=== PATIENT | female | born 1955 | race Caucasian/White ===

== ENCOUNTER → 2017-02-08 | Outpatient (CLI) | payer BC ==
[2017-02-08 14:41] LABS: LIPASE 217 IU/L (23-300)
--- NOTE | 2017-02-10 21:49 | DI ---
PA /LATERAL CHEST X-RAY, 02/08/2017 1:48 PM : Clinical History: Dyspnea Previous Exam: None at this facility. There is no acute soft tissue or bony abnormality. Heart size is normal. Lungs are clear. There is a well-demarcated edge involving the posterior margin of the left lateral ventricle. There is no infiltrate nor effusion. Skeletal structures are unremarkable. There are no pulmonary nodules. IMPRESSION: Prominence of the posterior wall of the left ventricle most likely representing some left ventricular hypertrophy. Consider CT chest for further evaluation.
== END ==
LOC: MOB LAB 13:48
PROVIDERS: ATTEND Physician Assistant Medical
DX: R10.84 Generalized abdominal pain (principal); R06.00 Dyspnea, unspecified; F17.200 Nicotine dependence, unspecified, uncomplicated
CPT/HCPCS: 36415; 71020; 82150; 83690

== ENCOUNTER → 2017-02-25 | Outpatient (CLI) | payer BC ==
--- NOTE | 2017-02-25 10:18 | DI ---
CT CHEST SCAN WITH IV CONTRAST, 02/25/2017 9:07 AM : Clinical History: Abnormal chest x-ray. Prominence of the posterior margin of the left ventricle was noted and a CT scan of the chest was recommended. Previous Exam: None at this facility. Scans are performed from the base of the neck to the level of the adrenal glands with contrast. 95 ml of Isovue 300 was injected IV, followed by a bolus of 50 mL of normal saline. The base of the neck and thoracic inlet are normal. There are no abnormal axillary, supraclavicular, mediastinal, or hilar nodes. The heart is normal. There is no evidence of coronary artery calcificati ons or left ventricular hypertrophy or left intraocular chamber dilatation. The ascending and descend ing aorta are normal. The pulmonary arteries are normal and there is no evidence of pulmonary emboli or pulmonary arterial hypertension. The lungs are clear and there are no pulmonary nodules or masses. Both adrenal glands and the visualized portions of the liver, spleen, and pancreas are normal. READIN. Normal CT chest scan with IV contrast. 2. No abnormality of the left ventricle is noted as was suggested in the chest x-ray report.
== END ==
LOC: CT 09:04
PROVIDERS: ATTEND Physician Assistant Medical
DX: R93.8 Abnormal findings on diagnostic imaging of other specified body structures (principal)
CPT/HCPCS: 71260

== ENCOUNTER 2017-05-01 15:10 | Emergency (ER) | payer BC ==
[2017-05-01] MEDS ORDERED: KETOROLAC 15 MG/1 ML VIAL IVP ONE (16:04)
--- NOTE | 2017-05-01 16:08 | PDOC ---
Abdomen/Flank HPI - General Chief Complaint: Abdomen Pain Stated Complaint: abdominal pain Date Seen by Provider: 05/01/17 Time Seen by Provider: 16:03 - History of Present Illness Initial Comments: Patient is a very nice 62-year-old woman who starting last night has been developing some intense left-sided flank pain that comes around to the front of her abdomen in the midline and also radiates down towards her groin little bit. She denies any fever or chills denies nausea or vomiting denies any stool changes lately. She's not had history of kidney stones of her. Denies any abdominal malignancy no substantial abdominal surgical history. She has not had any kidney disease in the past. - Patient Home Medications Home Medications: Home Medications Vitamin D 10,000 unit PO DAILY 09/14/11 Calcium Carbonate/Vitamin D3 [Calcium 600 + Vit D Tablet] 1 each PO BID Lansoprazole [Prevacid 24Hr] 1 tab PO PRN cap 06/15/14 Amlodipine Besylate 5 mg PO DAILY #14 tablet 05/01/17 - Patient Allergies Allergies/Adverse Reactions: Allergies Allergy/AdvReac Type Severity Reaction Status Date / Time No Known Allergies Allergy Verified 05/01/17 16:22 Past Medical History - heen HEENT History: Dentures/Partials Additional HEENT History: UPPER AND LOWER Cardiovascular History: Denies History Respiratory History: Sleep Apnea, Snoring Gastrointestinal History: GERD Genitourinary History: Denies History Additional Genitourinary History: BLADDER SLING Endocrine History: Denies History Musculoskeletal History:  Prosthesis or Implant: No Additional Musculoskeletal History: OSTEOPENIA Neurological History: Denies History Blood Disorders: Denies History Psychiatric History: Denies History History of Sexually Transmitted Diseases: No Cancer History: Denies History History of MDRO: No History of Other Communicable Diseases: No Alcohol Use: Rarely Substance Use Type: None Previous Surgical History: Yes Type / Date of Surgery: RIGHT I&D OF BREAST X3, BLADDER SLING, COLONOSCOPY, LEFT BREAST I&D/BREAST BX Anesthesia Reactions: No Malignant Hyperthermia: No Significant Family History: No pertinent family hx Past Medical History Reviewed: Reviewed - No Changes ROS - Limitations ROS Limitations: No Limitations Constitution: REPORTS: Denies Symptoms Cardiovascular: REPORTS: Denies Cardiac Symptoms Abdominal/Flank Pain PE - General Appearance General Appearance: POSITIVE: Alert, Cooperative, No Acute Distress - HEENT HEENT: POSITIVE: Head Inspection Nml, Eyes Inspection Nml - Neck Neck: POSITIVE: Normal Inspection - Respiratory Respiratory: POSITIVE: No Respiratory Distress, Breath Sounds Normal - Cardiovascular Cardiovascular: POSITIVE: Regular Rate and Rhythm, Heart Sounds Normal - Abdomen Additional Abdominal Details: With movement the patient's pain seems to be worse. This is mostly in the left flank though it does radiate around to her upper abdomen and down into the groin a little bit. Bowel sounds are present. - Back Back: POSITIVE: CVA Tenderness (L) - Skin Skin: POSITIVE: Intact, Normal For Race - Extremities Extremity: Non-Tender: (All Extremities) - Neurological Neurological: POSITIVE: Affect Apporpriate Abdomen Progress - Results Reviewed by me Xrays/CTs/US Reviewed by me: Yes Radiology Findings: CT abdomen and pelvis shows no concerning abnormalities this time. Lab Results Reviewed: Yes Lab Results:: Laboratory Results 05/01/17 05/01/17 Range/Units 16:07 16:30 WBC 7.52 (4.8-10.8) 10^3/uL RBC 4.61 (4.20-5.40) 10^6/uL Hgb 14.1 (12.0-16.0) g/dL Hct 43.6 (37.0-47.0) % MCV 94.6 (81-99) FL MCH 30.6 (27-31) PG MCHC 32.3 L (33-37) g/dL RDW Std Deviation 47.0 (39-50) fL RDW Coeff of Senait 13.9 (11.5-14.5) % Plt Count 306 (140-350) 10*3/uL MPV 9.9 (7.4-12.2) FL Immature Gran % (Auto) 0.1 (0-5) % Neut % (Auto) 58.2 (50-80) % Lymph % (Auto) 30.2 (10-50) % Wood % (Auto) 7.2 (5-15) % Eos % (Auto) 2.4 (0-8) % Baso % (Auto) 1.9 H (0-1) % Immature Gran # (Auto) 0.01 10*3/UL Neut # (Auto) 4.38 10*3/UL Lymph # (Auto) 2.27 10*3/uL Wood # (Auto) 0.54 (0.3-0.8) 10*3/UL Eos # (Auto) 0.18 10*3/UL Baso # (Auto) 0.14 10*3/UL WBC Morphology Comment Normal morphology (NORM) Plt Morphology Comment Normal morphology (NORM) RBC Morph Comment Normal morphology (NORM) Sodium 139 (135-145) meq/L Potassium 3.9 (3.8-5.2) meq/L Chloride 108 (98-112) meq/L Carbon Dioxide 23 (23-33) meq/L Anion Gap 8 (5-20) BUN 22 (7-22) mg/dL Creatinine 1.0 (0.50-1.20) mg/dL Estimated GFR 56 (>60 ml/min/1.73m(2)) BUN/Creatinine Ratio 22.00 H (6-20) Glucose 90 (78-110) mg/dL Calculated Osmolality 290.0 (267-292) mOsm/kg Calcium 8.9 (8.7-10.7) mg/dL Total Bilirubin 0.5 (0.3-1.2) mg/dL AST 32 (8-39) IU/L ALT 40 (9-52) IU/L Alkaline Phosphatase 81 (38-126) IU/L Total Protein 7.0 (6.1-8.0) g/dL Albumin 4.1 (3.5-4.8) g/dL Globulin 2.8 (2.50-4.10) g/dL Albumin/Globulin Ratio 1.40 (1.3-2.0) mg/g Lipase 162 (23-300) IU/L Ur Collection Type Clean catch urine Urine Color Yellow Urine Clarity Clear (CLEAR) Urine pH 6.0 (5.0-8.5) Ur Specific [place] 1.010 (1.005-1.030) Urine Protein Negative (NEG) mg/dl Urine Glucose (UA) Negative (NEG) mg/dL Urine Ketones Negative (NEG) Urine Occult Blood Small H (NEG) Urine Nitrate Negative (NEG) Urine Bilirubin Negative (NEG) Urine Urobilinogen 0.2 (0.2) EU/dL Ur Leukocyte Esterase Trace (NEG) Urine RBC 6-8 (NONE) /hpf Urine WBC 2-4 (NONE) Ur Squamous Epith Cells Few (NONE) Ur Renal Epithelial Cell Rare (NONE) Urine Crystals None Urine Bacteria Rare (NONE) Urine Casts None (NONE) Urine Mucus None (NONE) Urine Trichomonas None (NONE) Urine Yeast None (NONE) Ur Culture Indicated? Culture not set - Patient's Progress MDM / ED Course: Patient had a substantial workup including CT scan of her abdomen without contrast for her left-sided flank pain. This was negative and also showed no other significant intra-abdominal pathology. She also has benign-appearing labs as well. She responded well to Toradol it is almost pain-free. Her pain is definitely positional and if she sits just write her pain be much worse and does tend to wrap around her thorax/upper abdomen towards the midline which would indicate a possible nerve impingement or radiculopathy. I've told her that there are other possibilities including aortic dissection splenic infarction or a number of other things that could be evaluated for the contrast CT but this point I don't see substantial evidence for these. Certainly I told her she is return right away if things are worsening at all but ultimately I think she should be stable and we can monitor her closely. Her blood pressure has been up I think this is related to her pain and being in the hospital I will treat her with amlodipine 5 mg daily on give her couple weeks supply never follow-up with her primary care doctor to decide if they're to continue that or not. She is also given pain pills enough to get through the night tonight and to see her primary care provider tomorrow for blood pressure check and reevaluation of her pain. She is take 5 mg every 4-6 hours as needed. Patient Care Time - Estimated PCT Patient Care Time (In Minutes): 40 Vital Signs - VS Reviewed Vital Signs Reviewed: Yes Discharge Clinical Impression: Back pain, Flank pain, Hypertension, Elevated blood pressure, situational Discharge Disposition: Discharged to Home Condition: Stable Prescriptions / Orders: Amlodipine Besylate 5 mg PO DAILY #14 tablet Patient Instructions Given at Discharge: Lumbar Radiculopathy (ED) Additional Instructions: Follow-up with your primary care provider tomorrow to check your blood pressure and reevaluate your back pain Follow-up here immediately if you have worsening of your symptoms or other complaints Take Lortab 1 tab as needed every 4-6 hours for pain Use [id number] ibuprofen and Tylenol as needed for pain, do not exceed 4 g of Tylenol daily. Rest and take it easy do not try substantial exercise or movement while your pain is improving Follow Up With: MARY KATE ARRIAGA [Primary Care Provider] -
[2017-05-01 16:15] LABS: CALCIUM 8.9 mg/dL (8.7-10.7); SERUM ALBUMIN 4.1 g/dL (3.5-4.8)
[2017-05-01 16:17] LABS: HEMATOCRIT 43.6 % (37.0-47.0); HEMOGLOBIN 14.1 g/dL (12.0-16.0); RED BLOOD COUNT 4.61 10^6/uL (4.20-5.40)
[2017-05-01 16:18] LABS: BASOPHILS # (AUTO) 0.14 10*3/UL; BASOPHILS % (AUTO) 1.9 % (0-1); EOSINOPHILS # (AUTO) 0.18 10*3/UL; EOSINOPHILS % (AUTO) 2.4 % (0-8); LYMPHOCYTES # (AUTO) 2.27 10*3/uL; MEAN CORPUSCULAR HEMOGLOBIN 30.6 PG (27-31); MEAN CORPUSCULAR HGB CONC 32.3 g/dL (33-37); MEAN CORPUSCULAR VOLUME 94.6 FL (81-99); MEAN PLATELET VOLUME 9.9 FL (7.4-12.2); MONOCYTES # (AUTO) 0.54 10*3/UL (0.3-0.8); MONOCYTES % (AUTO) 7.2 % (5-15); NEUTROPHILS # (AUTO) 4.38 10*3/UL; NEUTROPHILS % (AUTO) 58.2 % (50-80); PLATELET MORPHOLOGY COMMENT NORMAL MORPHOLOGY (NORM); RBC MORPHOLOGY COMMENT NORMAL MORPHOLOGY (NORM); WBC MORPHOLOGY COMMENT NORMAL MORPHOLOGY (NORM)
[2017-05-01] MEDS ORDERED: Sodium Chloride 0.9% 1,000 ML PRIMARY IV ONE (16:30)
[2017-05-01 16:52] LABS: CLARITY,URINE CLEAR (CLEAR); COLOR,URINE YELLOW; PROTEIN,URINE NEGATIVE (NEG); URINE SAMPLE TYPE CLEAN CATCH URINE
[2017-05-01 16:53] LABS: BILIRUBIN,URINE NEGATIVE (NEG); GLUCOSE, URINE (UA) NEGATIVE (NEG); NITRATE,URINE NEGATIVE (NEG); OCCULT BLOOD,URINE SMALL (NEG); UROBILINOGEN,URINE 0.2 EU/dL (0.2)
[2017-05-01 16:54] LABS: RENAL EPITHELIAL CELLS,URINE RARE; SQUAMOUS EPITHELIAL CELL,UR FEW
[2017-05-01 16:55] LABS: BACTERIA,URINE RARE
[2017-05-01] MEDS ORDERED: Sodium Chloride 0.9% 1,000 ML ONE (17:43)
--- NOTE | 2017-05-01 18:08 | DI ---
CT ABDOMEN/PELVIS W/O CONTRAST,05/01/2017 5:06 PM: Clinical History: Flank pain and hematuria. Previous Exam: None at this facility. Findings: Multiple helically acquired CT images are obtained through the abdomen and pelvis without contrast, a nd demonstrate a normal-appearing appendix. The urinary bladder is unremarkable. There is no free air nor free fluid. There is no mesenteric or retroperitoneal lymphadenopathy. The lung bases are clear. The spleen, liver, pancreas and adrenals are unremarkable. The gallbladder is also unremarkable. The kidneys are unremarkable without stones nor hydronephrosis. Mild degenerative changes of lower lumbar spine are seen. Impression: No obstructive uropathy.
[2017-05-01] MEDS ORDERED: AmLODIPine Tab 5 MG TABLET PO ONE (18:59)
[2017-05-01] MEDS ORDERED: HYDROcodone-APAP 5 MG -325 MG TABLET PO SCH (19:00)
[2017-05-02] MEDS ORDERED: AmLODIPine Tab 5 MG TABLET PO SCH (09:00)
== END 2017-05-01 19:52 | disposition home or self-care (01) ==
LOC: ER 15:10
DX: R10.12 Left upper quadrant pain (principal); M54.89 Other dorsalgia; I10 Essential (primary) hypertension; R10.32 Left lower quadrant pain
CPT/HCPCS: 74176; 80053; 81001; 81003; 83690; 85025; 96361; 96374; 99283 ×2; J1885; J7030

== ENCOUNTER → 2017-05-03 | Outpatient (CLI) | payer BC | LOC: LAB 08:00 | DX: R30.0 Dysuria (principal); R31.9 Hematuria, unspecified | CPT/HCPCS: 87088 ==